=== PATIENT | female | born 1995 | race Caucasian/White ===

== ENCOUNTER 2020-03-15 23:03 | Emergency (ER) | payer BC ==
[2020-03-15 23:17] VITALS: O2SAT 100
[2020-03-15] MEDS ORDERED: Hydromorphone 1 mg/ml Ampule IV ONE (23:19)
[2020-03-15] MEDS ORDERED: PROTONIX 40 MG IV IV ONE ×2 (23:19→23:30)
[2020-03-15] MEDS ORDERED: Sodium Chloride 0.9% 1000 ML 1,000 ML IV STA (23:19)
[2020-03-15] MEDS ORDERED: Zofran 4 MG/2 ML VIAL IV ONE (23:19)
[2020-03-15] MEDS ORDERED: Hydromorphone 1 mg/ml Ampule ONE (23:30)
[2020-03-15] MEDS ORDERED: Sodium Chloride 0.9% 1000 ML 1,000 ML ONE (23:30)
[2020-03-15] MEDS ORDERED: Zofran 4 MG/2 ML VIAL ONE (23:30)
[2020-03-16 00:04] LABS: Absolute Neutrophil Ct (ANC) 4.11 (1.4-6.9); BASOPHIL % 0.4 % (0.0-0.4); Basophil (Absolute #) 0.03 (0-0.4); Eosinophil % 16.1 % (0.00-5.0); Eosinophil (Absolute #) 1.34 (0-0.5); Hematocrit 34.6 % (35-47); Hemoglobin 10.7 gm/dl (12.0-16.0); Lymphocyte (Absolute #) 2.18 (1.0-4.6); Lymphocytes % 26.3 % (24.0-44.0); Mean Cell Volume 80.3 fl (78-100); Mean Corpuscular Hemoglobin 24.8 pg (26-32); Mean Corpuscular Hgb Concent. 30.9 g/dl (32-36); Monocyte (Absolute #) 0.64 (0.0-1.3); Monocytes % 7.7 % (0.0-12.0); Neutrophil % 49.5 % (36.0-66.0); Platelet Count 286 K/mm3 (150-450); Red Blood Count 4.31 M/mm3 (4.1-5.4); White Blood Count 8.3 K/mm3 (4.0-10.5)
[2020-03-16 00:16] LABS: INR 1.07 (0.8-3.0); PROTIME 12.1 SECONDS (9.95-12.35)
--- NOTE | 2020-03-16 00:17 | ERPHSYRPT ---
- History of Present Illness Time Seen by Provider: 03/15/20 23:45 Historian: patient Exam Limitations: no limitations Patient Subjective Stated Complaint: pt c/o mid epigastric abd pain Triage Nursing Assessment: pt c/o mid epigastric abd pain, radiating to LUQ and to back. This has been going on and off x1 month but got really bad tonight, became diaphoretic, nausea and vomiting, diarrhea. Lungs clear, heart tones reg, abd soft with active bs x4 quad, tender on palpation. Physician History: Patient is a 25-year-old female who presents with a complaint of abdominal pain. She reports that this pain is actually been on and off for about a month. Tonight about 45 minutes prior to arrival she developed severe epigastric pain had some nausea vomiting and diaphoresis. She had some chills as well. Her abdominal history of her surgery is negative she describes the pain is stabbing she does have a history of peptic ulcer disease. Timing/Duration: week(s) (4), intermittent Activities at Onset: none Quality: stabbing Abdominal Pain Onset Location: epigastric Pain Radiation: RUQ Severity of Pain-Max: severe Severity of Pain-Current: moderate Modifying Factors: Improves With: nothing Previous symptoms: same symptoms as today Allergies/Adverse Reactions: No Known Drug Allergies Allergy (Verified 03/15/20 23:24) Home Medications: Buspirone HCl 10 mg pe PO DAILY 03/15/20 [History] Fluoxetine HCl 20 mg PO DAILY 03/15/20 [History] Hx Tetanus, Diphtheria Vaccination/Date Given: Yes Hx Influenza Vaccination/Date Given: No Hx Pneumococcal Vaccination/Date Given: No Immunizations Up to Date: Yes Travel Risk - International Travel Have you traveled outside of the country in past 3 weeks: No - Coronavirus Screening Are you exhibiting any of the following symptoms?: No Close contact with a COVID-19 positive Pt in past 14-21 Days: No - Review of Systems Constitutional: No Fever, No Chills Eyes: No Symptoms Ears, Nose, & Throat: No Symptoms Respiratory: No Cough, No Dyspnea Cardiac: No Chest Pain, No Edema, No Syncope Abdominal/Gastrointestinal: Abdominal Pain, Nausea, Vomiting, No Diarrhea Genitourinary Symptoms: No Dysuria Musculoskeletal: No Back Pain, No Neck Pain Skin: No Rash Neurological: No Dizziness, No Focal Weakness, No Sensory Changes Psychological: No Symptoms Endocrine: No Symptoms All Other Systems: Reviewed and Negative - Past Medical History Pertinent Past Medical History: Yes Neurological History: No Pertinent History ENT History: No Pertinent History Cardiac History: No Pertinent History Respiratory History: No Pertinent History Endocrine Medical History: No Pertinent History Musculoskeletal History: No Pertinent History GI Medical History: Ulcer History: No Pertinent History Psycho-Social History: Anxiety, Depression Female Reproductive Disorders: No Pertinent History - Past Surgical History Past Surgical History: No - Social History Smoking Status: Never smoker Exposure to second hand smoke: Yes Drug Use: none Patient Lives Alone: No - Female History Hx Last Menstrual Period: 2 weeks ago Hx Now: No - Nursing Vital Signs Nursing Vital Signs: Initial Vital Signs Temperature 98.2 F 03/15/20 23:16 Pulse Rate 80 03/15/20 23:16 Respiratory Rate 16 03/15/20 23:16 Blood Pressure 150/79 03/15/20 23:16 O2 Sat by Pulse Oximetry 100 03/15/20 23:16 Pain Scale Pain Intensity 3 - Physical Exam General Appearance: mild distress, alert Eye Exam: PERRL/EOMI, eyes nml inspection Ears, Nose, Throat Exam: normal ENT inspection, pharynx normal, moist mucous membranes Neck Exam: normal inspection, non-tender, supple, full range of motion Respiratory Exam: normal breath sounds, lungs clear, No respiratory distress Cardiovascular Exam: regular rate/rhythm, normal heart sounds Gastrointestinal/Abdomen Exam: soft, tenderness, No mass Back Exam: normal inspection, normal range of motion, No CVA tenderness, No vertebral tenderness Extremity Exam: normal inspection, normal range of motion, pelvis stable Neurologic Exam: alert, oriented x 3, cooperative, normal mood/affect, nml cerebellar function, sensation nml, No motor deficits Skin Exam: normal color, warm, dry SpO2 Interpretation: normal SpO2: 100 O2 Delivery: Room Air - CT Exams Abdomen/Pelvis CT Interpretation: Tele-radiologist Report, Other (This was negative except for an involuting follicle or cyst of the left ovary with a small amount of free fluid in the pelvis) Ordered Tests: Active Orders 24 hr Category Date Time Status IV Insertion STAT Care 03/15/20 23:19 Active ABDOMEN AND PELVIS W CONTRAST [CT] Stat Exams 03/16/20 00:10 Taken CHEST 1 VIEW (PORTABLE) Stat Exams 03/16/20 00:10 Taken AMYLASE Stat Lab 03/15/20 23:30 Completed CBC W DIFF Stat Lab 03/15/20 23:30 Completed CMP Stat Lab 03/15/20 23:30 Completed HCG,QUALITATIVE URINE Stat Lab 03/15/20 23:58 Completed LIPASE Stat Lab 03/15/20 23:30 Completed Lactic Acid Stat Lab 03/15/20 23:41 Completed PROTIME WITH INR Stat Lab 03/15/20 23:30 Completed UA W/RFX UR CULTURE Stat Lab 03/15/20 23:58 Completed Medication Summary Discontinued Medications Generic Name Dose Route Start Last Admin Trade Name Charlieq PRN Reason Stop Dose Admin Hydromorphone HCl 1 mg 03/15/20 23:19 03/15/20 23:46 Hydromorphone 1 Mg/Ml Ampule IV 03/15/20 23:20 1 mg STAT ONE Administration Hydromorphone HCl Confirm 03/15/20 23:30 Hydromorphone 1 Mg/Ml Ampule Administered 03/15/20 23:31 Dose 1 mg .ROUTE .STK-MED ONE Sodium Chloride 1,000 mls @ 999 mls/hr 03/15/20 23:19 03/15/20 23:47 Sodium Chloride 0.9% 1000 Ml IV 03/16/20 00:19 999 mls/hr .Q1H1M STA Administration Sodium Chloride Confirm 03/15/20 23:30 Sodium Chloride 0.9% 1000 Ml Administered 03/15/20 23:31 Dose 1,000 mls @ ud .ROUTE .STK-MED ONE Ondansetron HCl 4 mg 03/15/20 23:19 03/15/20 23:47 Zofran 4 Mg/2 Ml Vial IV 03/15/20 23:20 4 mg STAT ONE Administration Ondansetron HCl Confirm 03/15/20 23:30 Zofran 4 Mg/2 Ml Vial Administered 03/15/20 23:31 Dose 4 mg .ROUTE .STK-MED ONE Pantoprazole Sodium 40 mg 03/15/20 23:19 03/15/20 23:47 Protonix 40 Mg Iv IV 03/15/20 23:20 40 mg STAT ONE Administration Pantoprazole Sodium Confirm 03/15/20 23:30 Protonix 40 Mg Iv Administered 03/15/20 23:31 Dose 40 mg IV .STK-MED ONE Lab/Rad Data: Laboratory Result Diagrams 03/15/20 23:30 03/15/20 23:30 Laboratory Results 03/15/20 03/15/20 03/15/20 Range/Units 23:58 23:58 23:41 WBC (4.0-10.5) K/mm3 RBC (4.1-5.4) M/mm3 Hgb (12.0-16.0) gm/dl Hct (35-47) % MCV (78-100) fl MCH (26-32) pg MCHC (32-36) g/dl RDW (11.5-14.0) % Plt Count (150-450) K/mm3 MPV (7.5-11.0) fl Gran % (36.0-66.0) % Eos # (Auto) (0-0.5) Absolute Lymphs (auto) (1.0-4.6) Absolute Monos (auto) (0.0-1.3) Lymphocytes % (24.0-44.0) % Monocytes % (0.0-12.0) % Eosinophils % (0.00-5.0) % Basophils % (0.0-0.4) % Absolute Granulocytes (1.4-6.9) Basophils # (0-0.4) PT (9.95-12.35) SECONDS INR (0.8-3.0) Sodium (137-145) mmol/L Potassium (3.5-5.1) mmol/L Chloride (98-107) mmol/L Carbon Dioxide (22-30) mmol/L Anion Gap (5-15) MEQ/L BUN (7-17) mg/dL Creatinine (0.52-1.04) mg/dL Estimated GFR ML/MIN Glucose (74-106) mg/dL Lactic Acid 0.6 (0.4-2.0) Calcium (8.4-10.2) mg/dL Total Bilirubin (0.2-1.3) mg/dL AST (14-36) U/L ALT (0-35) U/L Alkaline Phosphatase (38-126) U/L Serum Total Protein (6.3-8.2) g/dL Albumin (3.5-5.0) g/dL Amylase (30-110) U/L Lipase (23-300) U/L Urine Color STRAW (YELLOW) Urine Appearance CLEAR (CLEAR) Urine pH 6.0 (5-6) Ur Specific [place] 1.014 (1.005-1.025) Urine Protein NEGATIVE (Negative) Urine Ketones NEGATIVE (NEGATIVE) Urine Blood NEGATIVE (0-5) Lucas/ul Urine Nitrite NEGATIVE (NEGATIVE) Urine Bilirubin NEGATIVE (NEGATIVE) Urine Urobilinogen NEGATIVE (0-1) mg/dL Ur Leukocyte Esterase NEGATIVE (NEGATIVE) Urine WBC (Auto) NONE SEEN (0-5) /HPF Urine RBC (Auto) NONE SEEN (0-2) /HPF U Epithel Cells (Auto) RARE (FEW) /HPF Urine Bacteria (Auto) RARE (NEGATIVE) /HPF Urine Mucus (Auto) SLIGHT (NEGATIVE) /HPF Urine Culture Reflexed NO (NO) Urine Glucose NEGATIVE (NEGATIVE) mg/dL Urine HCG, Qual NEGATIVE (Negative) 03/15/20 03/15/20 03/15/20 Range/Units 23:30 23:30 23:30 WBC 8.3 (4.0-10.5) K/mm3 RBC 4.31 (4.1-5.4) M/mm3 Hgb 10.7 L (12.0-16.0) gm/dl Hct 34.6 L (35-47) % MCV 80.3 (78-100) fl MCH 24.8 L (26-32) pg MCHC 30.9 L (32-36) g/dl RDW 16.0 H (11.5-14.0) % Plt Count 286 (150-450) K/mm3 MPV 11.0 (7.5-11.0) fl Gran % 49.5 (36.0-66.0) % Eos # (Auto) 1.34 H (0-0.5) Absolute Lymphs (auto) 2.18 (1.0-4.6) Absolute Monos (auto) 0.64 (0.0-1.3) Lymphocytes % 26.3 (24.0-44.0) % Monocytes % 7.7 (0.0-12.0) % Eosinophils % 16.1 H (0.00-5.0) % Basophils % 0.4 (0.0-0.4) % Absolute Granulocytes 4.11 (1.4-6.9) Basophils # 0.03 (0-0.4) PT 12.1 (9.95-12.35) SECONDS INR 1.07 (0.8-3.0) Sodium 135 L (137-145) mmol/L Potassium 3.9 (3.5-5.1) mmol/L Chloride 104 (98-107) mmol/L Carbon Dioxide 25 (22-30) mmol/L Anion Gap 9.9 (5-15) MEQ/L BUN 16 (7-17) mg/dL Creatinine 0.69 (0.52-1.04) mg/dL Estimated GFR > 60.0 ML/MIN Glucose 89 (74-106) mg/dL Lactic Acid (0.4-2.0) Calcium 8.9 (8.4-10.2) mg/dL Total Bilirubin 0.30 (0.2-1.3) mg/dL AST 28 (14-36) U/L ALT 15 (0-35) U/L Alkaline Phosphatase 54 (38-126) U/L Serum Total Protein 6.9 (6.3-8.2) g/dL Albumin 3.9 (3.5-5.0) g/dL Amylase 47 (30-110) U/L Lipase 114 (23-300) U/L Urine Color (YELLOW) Urine Appearance (CLEAR) Urine pH (5-6) Ur Specific [place] (1.005-1.025) Urine Protein (Negative) Urine Ketones (NEGATIVE) Urine Blood (0-5) Lucas/ul Urine Nitrite (NEGATIVE) Urine Bilirubin (NEGATIVE) Urine Urobilinogen (0-1) mg/dL Ur Leukocyte Esterase (NEGATIVE) Urine WBC (Auto) (0-5) /HPF Urine RBC (Auto) (0-2) /HPF U Epithel Cells (Auto) (FEW) /HPF Urine Bacteria (Auto) (NEGATIVE) /HPF Urine Mucus (Auto) (NEGATIVE) /HPF Urine Culture Reflexed (NO) Urine Glucose (NEGATIVE) mg/dL Urine HCG, Qual (Negative) - Progress Progress: improved - Departure Departure Disposition: Home Clinical Impression: Abdominal pain Condition: Stable Critical Care Time: No Instructions: Acute Abdomen (Belly Pain), Adult (DC) Prescriptions: Ondansetron ODT 4 MG [Zofran Odt 4 mg] 4 mg PO Q6H PRN PRN #10 tab.rapdis PRN Reason: Vomiting PANTOPRAZOLE 40 mg Tablet [Protonix 40MG Tablet] 40 mg PO QPM 30 Days #30 tab
[2020-03-16 00:21] LABS: ALBUMIN 3.9 g/dL (3.5-5.0); ALKALINE PHOSPHATASE 54 U/L (38-126); AMYLASE 47 U/L (30-110); ANION GAP 9.9 MEQ/L (5-15); BLOOD UREA NITROGEN 16 mg/dL (7-17); CHLORIDE 104 mmol/L (98-107); Calcium 8.9 mg/dL (8.4-10.2); Carbon Dioxide 25 mmol/L (22-30); Creatinine 1 0.69 mg/dL (0.52-1.04); EST GLOMERULAR FILTRATION RATE > 60.0 ML/MIN; Glucose 89 mg/dL (74-106); LIPASE 114 U/L (23-300); Potassium 3.9 mmol/L (3.5-5.1); SGOT/AST 28 U/L (14-36); SGPT/ALT 15 U/L (0-35); SODIUM 135 mmol/L (137-145); Total Protein 6.9 g/dL (6.3-8.2)
[2020-03-16 00:33] LABS: Appearance CLEAR (CLEAR); Bacteria RARE /HPF (NEGATIVE); Bilirubin NEGATIVE (NEGATIVE); Blood NEGATIVE Ery/ul (0-5); Epithelial Cells RARE /HPF (FEW); Glucose NEGATIVE (NEGATIVE); Ketones NEGATIVE (NEGATIVE); Leukocyte Esterase NEGATIVE (NEGATIVE); Mucus SLIGHT /HPF (NEGATIVE); Nitrite NEGATIVE (NEGATIVE); Protein,Urine Dip NEGATIVE (Negative); Specific Gravity 1.014 (1.005-1.025); Urobilinogen NEGATIVE mg/dL (0-1)
[2020-03-16 00:38] LABS: RBC NONE SEEN /HPF (0-2); WBC NONE SEEN /HPF (0-5)
[2020-03-16 01:25] VITALS: BP 99/55; PULSE 77
--- NOTE | 2020-03-16 09:01 | XRAY ---
Indication: Pain. Comparison: June 08. Portable chest again demonstrates normal heart and lungs with a few incidental tiny calcified granulomas. Bony thorax intact again with minimal scoliosis. No new/acute findings.
--- NOTE | 2020-03-16 09:05 | XRAY ---
Indication: Right upper quadrant pain. Nausea. Multiple contiguous axial images obtained through the abdomen and pelvis using 80 cc Isovue 370 contrast. Comparison September 15, 2013. Lung bases are clear. Heart is not enlarged. Noncontrasted stomach and bowel loops appear nonobstructed. Normal air-filled appendix. Again small cul-de-sac fluid presumed physiologic from rupture/leaking cyst. New 2 cm left ovary cyst. No free air. Remaining liver, gallbladder, pancreas, spleen, adrenal glands, kidneys, ureters, bladder, uterus, and aorta appear unremarkable. No pathologic retroperitoneal lymphadenopathy. Osseous structures intact. Impression: 1. New 2 cm left ovary cyst. Again small cul-de-sac physiologic free fluid. 2. Remaining CT abdomen/pelvis with contrast exam is negative. Comment: Preliminary interpretation was made by [facility]. No critical discrepancy.
== END 2020-03-16 01:37 | disposition home or self-care (01) ==
LOC: ED 23:03
DX: R10.13 Epigastric pain (principal); R11.2 Nausea with vomiting, unspecified; R19.7 Diarrhea, unspecified; R61 Generalized hyperhidrosis; Z87.11 Personal history of peptic ulcer disease; R10.11 Right upper quadrant pain; Z79.899 Other long term (current) drug therapy; F41.9 Anxiety disorder, unspecified
CPT/HCPCS: 36000; 36415; 71045; 74177; 80053; 81001; 82150; 83605; 83690; 84703; 85025; 85610; 96374; 96375; 99284; J1170; J2405